=== PATIENT | female | born 1960 | race Caucasian/White ===

== ENCOUNTER 2020-03-23 01:17 | Emergency (ER) | payer OTHER ==
[~2020-03-23] VITALS: Ht 170.2 cm; Wt 69.9 kg
[2020-03-23 01:20] VITALS: Ht 170.2 cm; Wt 69.9 kg
[2020-03-23 02:25] VITALS: BP 151/61
== END 2020-03-23 02:47 | disposition home or self-care (01) ==
LOC: ED 01:17
DX: Z02.89 Encounter for other administrative examinations (principal)